=== PATIENT | female | born 1950 | race Caucasian/White ===

== ENCOUNTER → 2018-09-15 | Outpatient (CLI) | payer MEDICARE, BC ==
[~2018-09-15] MED LIST: ALBU90OI INH; AMOCLA875 PO; Aspir 8181 MG PO; BENZ100A PO; CEFD300 PO; CETI5 PO; Crestor20 MG PO; ESOM20; FISH1000 PO; FLAX PO; HYDACE5 PO; HYDR1TAB94 PO; LORA1 PO; MULVITB PO; OMEP20ER PO; ONDA4ODT MM; PROM25 PO; Percocet 5-3251 EACH PO; Prednisone20 MG PO; ROSU10TA PO; TRAM50 PO; Zofran8 MG PO
== END | disposition home or self-care (01) ==
LOC: LAB SHORT 14:26 → PLD 14:26
DX: D17.22 Benign lipomatous neoplasm of skin and subcutaneous tissue of left arm (principal); D17.24 Benign lipomatous neoplasm of skin and subcutaneous tissue of left leg
CPT/HCPCS: 88304

== ENCOUNTER 2018-12-01 08:56 | Day surgery (SDC) | payer MEDICARE, BC ==
[~2018-12-01] VITALS: Ht 167.6 cm; Wt 103.8 kg
[2018-12-01] MEDS ORDERED: EZETIMIBE-SIMV1 EAC3 (09:41)
== END 2018-12-01 11:13 | disposition home or self-care (01) ==
LOC: ORSCSDS 08:56
PROVIDERS: Internal Medicine Gastroenterology
PROC: 0DJD8ZZ Inspection of Lower Intestinal Tract, Via Natural or Artificial Opening Endoscopic (ICD-10-PCS; principal; 2018-12-01 10:15)
DX: Z12.11 Encounter for screening for malignant neoplasm of colon (principal); Z86.010 Personal history of colon polyps; K21.9 Gastro-esophageal reflux disease without esophagitis; E78.5 Hyperlipidemia, unspecified; R11.2 Nausea with vomiting, unspecified; J45.909 Unspecified asthma, uncomplicated; Z87.891 Personal history of nicotine dependence; Z79.899 Other long term (current) drug therapy
CPT/HCPCS: J2704; J7120

== ENCOUNTER 2019-02-16 06:47 | Day surgery (SDC) | payer MEDICARE, BC ==
[~2019-02-16] VITALS: Ht 167.6 cm; Wt 104.5 kg
[~2019-02-16 06:47] MED LIST changes: +CHOL10002; +EZETIMIBE-SIMV1 EAC3
[2019-02-16] MEDS ORDERED: ASPI81CH PO (07:29)
--- NOTE | 2019-02-16 07:31 | NUR ---
02/16/19 0731 Kimberly Chauhan CALL LIGHT WITHIN REACH
--- NOTE | 2019-02-16 08:34 | NUR ---
02/16/19 0834 Valencia Rausch SIMETHICONE USED DURING PROCEDURE.
== END 2019-02-16 09:35 | disposition home or self-care (01) ==
LOC: ORSCSDS 06:47
PROVIDERS: Internal Medicine Gastroenterology
PROC: 0DBL8ZX Excision of Transverse Colon, Via Natural or Artificial Opening Endoscopic, Diagnostic (ICD-10-PCS; principal; 2019-02-16 08:00)
DX: Z12.11 Encounter for screening for malignant neoplasm of colon (principal); D12.3 Benign neoplasm of transverse colon; K64.4 Residual hemorrhoidal skin tags; K64.8 Other hemorrhoids; K57.30 Diverticulosis of large intestine without perforation or abscess without bleeding; Z86.010 Personal history of colon polyps; E78.5 Hyperlipidemia, unspecified; Z87.891 Personal history of nicotine dependence
CPT/HCPCS: 88305; J0330; J0461; J2405; J2704; J7120

== ENCOUNTER 2019-03-25 17:20 | Emergency (ER) | payer MEDICARE, BC ==
[~2019-03-25] VITALS: Ht 170.2 cm; Wt 99.8 kg
[~2019-03-25 17:20] MED LIST changes: +ASPI81CH PO
[2019-03-25 18:27] LABS: BASOPHILS ABSOLUTE AUTO 0.05 K/mm3 (0.00-0.23); BASOPHILS PERCENT AUTO 0 % (0-2); EOSINOPHILS ABSOLUTE AUTO 0.18 K/mm3 (0.00-0.68); EOSINOPHILS PERCENT AUTO 1 % (0-6); Hematocrit 44.3 % (33.0-51.0); Hemoglobin 14.6 g/dL (11.5-16.0); IMMATURE GRAN ABSOLUTE AUTO 0.09 K/mm3 (0.00-0.10); IMMATURE GRAN PERCENT AUTO 0 % (0-1); LYMPHOCYTES ABSOLUTE AUTO 1.85 K/mm3 (0.84-5.20); LYMPHOCYTES PERCENT AUTO 8 % (21-46); MONOCYTES ABSOLUTE AUTO 2.13 K/mm3 (0.16-1.47); MONOCYTES PERCENT AUTO 9 % (4-13); Mean Corpuscular HGB 31.1 pg (26.0-34.0); Mean Corpuscular Volume 94 fL (80-100); Mean Platelet Volume 9.8 fL (9.1-12.4); NEUTROPHILS ABSOLUTE AUTO 19.34 K/mm3 (1.96-9.15); NEUTROPHILS PERCENT AUTO 82 % (41-73); Platelet Count 274 K/mm3 (150-400); RDW Coefficient Variation 12.9 % (11.7-14.2); RDW Standard Deviation 44.3 fL (35.1-46.3); White Blood Cell Count 23.64 K/mm3 (4.00-11.30)
[2019-03-25 18:48] LABS: Alanine Aminotransfer (ALT/SGP 34 U/L (12-78); Albumin, Blood 3.9 g/dL (3.4-5.0); Albumin/Globulin Ratio 0.9 (0.8-1.8); Alk Phos 86 U/L (50-136); Anion Gap 8 mmol/L (6-16); Aspartate Aminotrans (AST/SGOT 23 U/L (12-37); Bilirubin, Total 0.5 mg/dL (0.1-1.0); Blood Urea Nitrogen 21 mg/dL (8-24); Bun/Creatinine Ratio 23.4 (12.0-20.0); CO2, Blood 25 mmol/L (21-32); Calcium, Blood 8.9 mg/dL (8.5-10.1); Chloride, Blood 107 mmol/L (98-108); Globulin, Blood 4.2 g/dL (2.2-4.0); Glomerular Filtration Rate >60 (60-); Glucose, Blood 96 mg/dL (70-99); Sodium, Blood 140 mmol/L (136-145); Total Protein, Blood 8.1 g/dL (6.4-8.2)
[2019-03-25 21:23] LABS: Source, Urine Clean Catch
[2019-03-25 21:32] LABS: Appearance, Urine Clear (Clear); Bilirubin, Urine Neg (Neg); Blood, Urine 1+ (Neg); Color, Urine Yellow (P-Yellow); Glucose Qualitative, Urine Neg (Neg); Ketones, Urine 1+ (Neg); Leukocyte Esterase, Urine Neg (Neg); Nitrite, Urine Neg (Neg); Protein, Urine Neg (Neg); Specific Gravity, Urine 1.015 (1.003-1.022); Urobilinogen, Urine NORM (Normal)
[2019-03-25 21:45] LABS: Red Blood Cells, Urine 0-2 /hpf (0-2); Squamous Epithelial Cells Rare /hpf (Few); White Blood Cells, Urine 0-2 /hpf (0-5)
[2019-03-25 21:46] LABS: Bacteria Mod /hpf; Mucus Light (0-Heavy)
[2019-03-25] MEDS ORDERED: FAMO20 PO (23:31)
[2019-03-25] MEDS ORDERED: ONDA4ODT MM (23:31)
== END 2019-03-25 23:48 | disposition home or self-care (01) ==
LOC: ER 17:20
PROVIDERS: Physician Assistant
DX: R11.2 Nausea with vomiting, unspecified (principal); R19.7 Diarrhea, unspecified; R10.9 Unspecified abdominal pain; Z88.5 Allergy status to narcotic agent; Z88.1 Allergy status to other antibiotic agents; Z79.899 Other long term (current) drug therapy; Z79.82 Long term (current) use of aspirin; E78.5 Hyperlipidemia, unspecified; E78.00 Pure hypercholesterolemia, unspecified
CPT/HCPCS: 36415; 74177; 80053; 81001; 83690; 85025; 87086; 96361; 96374-59; 96375; 99284-25; J2405; J7030; Q9967

== ENCOUNTER → 2019-03-30 | Outpatient (CLI) | payer MEDICARE, BC ==
[~2019-03-30] MED LIST changes: +FAMO20 PO
[2019-03-30 19:15] LABS: Adenovirus F 40/41 Not Detected (NOT DETECT); Astrovirus Not Detected (NOT DETECT); Campylobacter Sp Not Detected (NOT DETECT); Cryptosporidium Not Detected (NOT DETECT); Cyclospora Cayetanensis Not Detected (NOT DETECT); E. Coli O157 Not Detected (NOT DETECT); Entamoeba Histolytica Not Detected (NOT DETECT); Enteroaggregative E. coli-EAEC Not Detected (NOT DETECT); Enteropathogenic E. coli-EPEC Not Detected (NOT DETECT); Enterotoxigenic E. coli-ETEC Not Detected (NOT DETECT); Giardia Lamblia Not Detected (NOT DETECT); Norovirus GI/GII Not Detected (NOT DETECT); Plesiomonas Shigelloides Not Detected (NOT DETECT); Rotavirus A Not Detected (NOT DETECT); Salmonella Sp Not Detected (NOT DETECT); Sapovirus Not Detected (NOT DETECT); Shiga Toxin-prod E. coli-STEC Not Detected (NOT DETECT); Shigella/Enteroin E. coli-EIEC Not Detected (NOT DETECT); Vibrio Cholerae Not Detected (NOT DETECT); Vibrio Sp Not Detected (NOT DETECT); Yersinia Enterocolitica Not Detected (NOT DETECT)
== END ==
LOC: LAB EV 15:37
PROVIDERS: Nurse Practitioner Family
DX: K52.9 Noninfective gastroenteritis and colitis, unspecified (principal)
CPT/HCPCS: 0097U

== ENCOUNTER → 2020-03-21 | Outpatient (CLI) | payer MEDICARE, BC | END | disposition home or self-care (01) | LOC: PLD 15:05 → LAB SHORT 15:05 | DX: D22.71 Melanocytic nevi of right lower limb, including hip (principal) | CPT/HCPCS: 88305 ==

== ENCOUNTER 2020-12-11 09:25 | Emergency (ER) | payer MEDICARE, BC ==
[~2020-12-11] VITALS: Ht 167.6 cm; Wt 104.3 kg
[2020-12-11 11:22] LABS: BASOPHILS ABSOLUTE AUTO 0.02 K/mm3 (0.00-0.23); BASOPHILS PERCENT AUTO 0 % (0-2); EOSINOPHILS ABSOLUTE AUTO 0.05 K/mm3 (0.00-0.68); EOSINOPHILS PERCENT AUTO 1 % (0-6); Hematocrit 42.7 % (33.0-51.0); Hemoglobin 14.2 g/dL (11.5-16.0); IMMATURE GRAN ABSOLUTE AUTO 0.04 K/mm3 (0.00-0.10); IMMATURE GRAN PERCENT AUTO 1 % (0-1); LYMPHOCYTES ABSOLUTE AUTO 0.58 K/mm3 (0.84-5.20); LYMPHOCYTES PERCENT AUTO 8 % (21-46); MONOCYTES ABSOLUTE AUTO 0.57 K/mm3 (0.16-1.47); MONOCYTES PERCENT AUTO 8 % (4-13); Mean Corpuscular HGB 31.8 pg (26.0-34.0); Mean Corpuscular HGB Conc 33.3 g/dL (31.5-36.5); Mean Corpuscular Volume 96 fL (80-100); Mean Platelet Volume 9.5 fL (9.1-12.4); NEUTROPHILS ABSOLUTE AUTO 6.23 K/mm3 (1.96-9.15); NEUTROPHILS PERCENT AUTO 83 % (41-73); Platelet Count 179 K/mm3 (150-400); RDW Coefficient Variation 13.3 % (11.7-14.2); RDW Standard Deviation 47.6 fL (35.1-46.3); Red Blood Cell Count 4.47 M/mm3 (3.80-5.20); White Blood Cell Count 7.49 K/mm3 (4.00-11.30)
[2020-12-11 11:28] LABS: Source, Urine Clean Catch
[2020-12-11 11:40] LABS: Alanine Aminotransfer (ALT/SGP 29 U/L (12-78); Albumin, Blood 3.3 g/dL (3.4-5.0); Albumin/Globulin Ratio 0.9 (0.8-1.8); Alk Phos 75 U/L (50-136); Anion Gap 5 mmol/L (6-16); Aspartate Aminotrans (AST/SGOT 23 U/L (12-37); Bilirubin, Total 0.7 mg/dL (0.1-1.0); Blood Urea Nitrogen 17 mg/dL (8-24); Bun/Creatinine Ratio 22.4 (12.0-20.0); CO2, Blood 28 mmol/L (21-32); Calcium, Blood 8.4 mg/dL (8.5-10.1); Chloride, Blood 106 mmol/L (98-108); Creatinine, Blood 0.76 mg/dL (0.40-1.00); Globulin, Blood 3.8 g/dL (2.2-4.0); Glomerular Filtration Rate >60 (60-); Glucose, Blood 113 mg/dL (70-99); Potassium, Blood 3.8 mmol/L (3.5-5.5); Sodium, Blood 139 mmol/L (136-145); Total Protein, Blood 7.1 g/dL (6.4-8.2)
[2020-12-11 11:41] LABS: Appearance, Urine Turbid (Clear); Blood, Urine 3+ (Neg); Color, Urine Yellow (P-Yellow); Glucose Qualitative, Urine Neg (Neg); Ketones, Urine 1+ (Neg); Leukocyte Esterase, Urine 3+ (Neg); Nitrite, Urine Neg (Neg); Protein, Urine 2+ (Neg); Specific Gravity, Urine 1.025 (1.003-1.022); Urobilinogen, Urine 1+ (Normal)
[2020-12-11 11:59] LABS: Bilirubin, Urine 1+ (Neg)
[2020-12-11 12:01] LABS: Amorphous Heavy (0-Heavy); Bacteria Many /hpf; Squamous Epithelial Cells Few /hpf (Few)
[2020-12-11] MEDS ORDERED: PROM25 PO (13:27)
[2020-12-11] MEDS ORDERED: Metronidazole70 GM VAG (13:27)
[2020-12-11] MEDS ORDERED: CEPH500 PO (13:27)
== END 2020-12-11 14:00 | disposition home or self-care (01) ==
LOC: ER 09:25
PROVIDERS: Physician Assistant
DX: N39.0 Urinary tract infection, site not specified (principal); E78.00 Pure hypercholesterolemia, unspecified; E78.5 Hyperlipidemia, unspecified; Z88.5 Allergy status to narcotic agent; Z88.1 Allergy status to other antibiotic agents; Z79.82 Long term (current) use of aspirin; Z79.899 Other long term (current) drug therapy
CPT/HCPCS: 36415; 80053; 81001; 83690; 85025; 87086; 96374; 96375; 99284-25; J0696; J2405; J2550; J7030

== ENCOUNTER → 2020-12-15 | Outpatient (CLI) | payer MEDICARE, BC ==
[~2020-12-15] MED LIST changes: +CEPH500 PO; +Metronidazole70 GM VAG
[2020-12-15 16:32] LABS: Anion Gap 10 mmol/L (6-16); Blood Urea Nitrogen 12 mg/dL (8-24); Bun/Creatinine Ratio 16.7 (12.0-20.0); CO2, Blood 28 mmol/L (21-32); CPK Creatine Kinase 60 U/L (26-192); Calcium, Blood 8.8 mg/dL (8.5-10.1); Chloride, Blood 101 mmol/L (98-108); Creatinine, Blood 0.72 mg/dL (0.40-1.00); Glomerular Filtration Rate >60 (60-); Glucose, Blood 99 mg/dL (70-99); Potassium, Blood 3.5 mmol/L (3.5-5.5); Sodium, Blood 139 mmol/L (136-145)
[2020-12-15 16:34] LABS: Bacteria Few /hpf; Mucus Not Seen (0-Heavy); Red Blood Cells, Urine Rare /hpf (0-2); Source, Urine Voided; Squamous Epithelial Cells Rare /hpf (Few); White Blood Cells, Urine Rare /hpf (0-5)
[2020-12-15 16:35] LABS: Calcium Oxalate Crystals Few /hpf
== END | disposition home or self-care (01) ==
LOC: LAB EV 16:18 → LAB SHORT 16:18
PROVIDERS: Physician Assistant
DX: M79.10 Myalgia, unspecified site (principal); M79.671 Pain in right foot; M79.672 Pain in left foot; R20.2 Paresthesia of skin; R60.9 Edema, unspecified; R82.90 Unspecified abnormal findings in urine
CPT/HCPCS: 80048; 81015; 82550; 82607; 82746; 83880

== ENCOUNTER → 2021-04-01 | Outpatient (CLI) | payer MEDICARE, BC ==
[2021-04-01 15:35] LABS: Source, Urine Voided
[2021-04-01 15:38] LABS: Appearance, Urine Clear (Clear); Bilirubin, Urine Neg (Neg); Blood, Urine Neg (Neg); Color, Urine Yellow (P-Yellow); Glucose Qualitative, Urine Neg (Normal); Ketones, Urine Neg (Neg); Leukocyte Esterase, Urine Neg (Neg); Nitrite, Urine Neg (Neg); Protein, Urine Neg (Neg); Specific Gravity, Urine 1.005 (1.003-1.022); Urobilinogen, Urine NORM (Normal)
[2021-04-02 11:02] LABS: Candida species (DNA Probe) Negative (NEGATIVE); G. vaginalis (DNA Probe) Positive (NEGATIVE); T. vaginalis (DNA Probe) Negative (NEGATIVE)
== END | disposition home or self-care (01) ==
LOC: LAB 12:31 → LAB SHORT 12:31
PROVIDERS: Nurse Practitioner Family
DX: N76.0 Acute vaginitis (principal); R87.89 Other abnormal findings in specimens from female genital organs
CPT/HCPCS: 81003; 87480; 87510; 87660

== ENCOUNTER → 2021-06-22 | Outpatient (CLI) | payer MEDICARE, BC | END | disposition home or self-care (01) | LOC: LAB 12:15 → LAB SHORT 12:15 | DX: R30.0 Dysuria (principal) | CPT/HCPCS: 87077; 87086; 87186 ==

== ENCOUNTER → 2021-07-03 | Outpatient (CLI) | payer MEDICARE, BC | LOC: LAB SHORT 06:50 | DX: R30.0 Dysuria (principal) | CPT/HCPCS: 87077; 87086; 87186 ==

== ENCOUNTER → 2021-09-14 | Outpatient (CLI) | payer MEDICARE, BC | END | disposition home or self-care (01) | LOC: LAB 11:15 → LAB SHORT 11:15 | DX: R30.0 Dysuria (principal) | CPT/HCPCS: 87077; 87086; 87186 ==

== ENCOUNTER 2021-10-17 11:08 | Day surgery (SDC) | payer MEDICARE, BC ==
[~2021-10-17] VITALS: Ht 167.6 cm; Wt 101.1 kg
--- NOTE | 2021-10-17 13:45 | NUR ---
10/17/21 1345 DASH SHEPARD PT STATES FEELS PRESSURE IN KNEE. LÁZARO READJUSTED, STATES THATS HOW SHE DOES IT AT HOME TO SLEEP. PT FALLS BACK TO SLEEP EASILY. DENIES NAUSEA. SCOPE PATCH ON BEHIND RIGHT EAR.
== END 2021-10-17 14:45 | disposition home or self-care (01) ==
LOC: ORSCSDS 11:08
PROVIDERS: Orthopaedic Surgery
PROC: 0SBC4ZZ Excision of Right Knee Joint, Percutaneous Endoscopic Approach (ICD-10-PCS; principal; 2021-10-17 12:30)
DX: S83.231A Complex tear of medial meniscus, current injury, right knee, initial encounter (principal); M17.11 Unilateral primary osteoarthritis, right knee; J45.909 Unspecified asthma, uncomplicated; E66.9 Obesity, unspecified; Z68.36 Body mass index [BMI] 36.0-36.9, adult; E78.00 Pure hypercholesterolemia, unspecified; Z79.899 Other long term (current) drug therapy
CPT/HCPCS: A9270; J0690; J1100; J1885; J2250; J2405; J2704; J3010

== ENCOUNTER 2024-09-21 02:44 | Day surgery (SDC) | payer MEDICARE, BC ==
[~2024-09-21 02:44] MED LIST changes: +ASPIR 8181 M1 PO; +Acetaminophen650 M1; +CRANBERRY450 M1 PO; +ELIQUIS5 M2 PO; -ESOM20; +ESOM20 PO; +FENO160 PO; +LIVALO4 MG; +METO25ER PO; +VITAMIN D325 MC3 PO
[2024-09-21] MEDS ORDERED: INCLISIRAN SODIUM 284 MG/1.5 ML SYRINGE SC SCH (06:00)
[2024-09-21 11:13] VITALS: BP 146/60
[2024-09-21] MEDS ORDERED: FURO40 PO (11:27)
[2024-09-21] MEDS ORDERED: POTCHL20ER PO (11:27)
[2024-09-21] MEDS ORDERED: GABA300 PO (11:30)
== END 2024-09-21 11:45 | disposition home or self-care (01) ==
LOC: ATC 02:44
DX: E78.5 Hyperlipidemia, unspecified (principal); E55.9 Vitamin D deficiency, unspecified; K21.9 Gastro-esophageal reflux disease without esophagitis; I48.0 Paroxysmal atrial fibrillation; Z79.01 Long term (current) use of anticoagulants; Z79.899 Other long term (current) drug therapy; Z88.5 Allergy status to narcotic agent; Z88.1 Allergy status to other antibiotic agents; Z88.8 Allergy status to other drugs, medicaments and biological substances; Z90.49 Acquired absence of other specified parts of digestive tract
CPT/HCPCS: 96372; J1306

== ENCOUNTER 2024-09-29 08:09 | Day surgery (SDC) | payer MEDICARE, BC ==
[~2024-09-29] VITALS: Ht 167.6 cm; Wt 98.5 kg
[~2024-09-29 08:09] MED LIST changes: +FURO40 PO; +GABA300 PO; +Lactated Ringer's 1,000 ML IV ONE; +POTCHL20ER PO
[2024-09-29] MEDS ORDERED: Lactated Ringer's 1,000 ML IV ONE (09:13)
[2024-09-29] MEDS ORDERED: EPINEPhrine HCl 1 MG/ML 1ML Amp ONE (09:16)
[2024-09-29] MEDS ORDERED: CeFAZolin Sodium 2,000 MG VIAL ONE (09:23)
[2024-09-29] MEDS ORDERED: propofoL 20 ML IV ONE ×2 (09:25→09:43)
[2024-09-29] MEDS ORDERED: FentaNYL Citrate 50 MCG/ML 2 ML Injection ONE ×2 (09:25→10:41)
[2024-09-29] MEDS ORDERED: Rocuronium Bromide 10 MG/ML 5ML Injection IV ONE (09:26)
[2024-09-29] MEDS ORDERED: Ondansetron HCl 2 MG / ML 2ML Vial ONE ×2 (10:23→10:41)
[2024-09-29] MEDS ORDERED: Sugammadex Sodium 200 MG/2ML SDV (100 MG/ML) ONE (10:24)
[2024-09-29] MEDS ORDERED: Ketorolac Tromethamine 30mg Vial ONE (10:26)
--- NOTE | 2024-09-29 10:49 | NUR ---
09/29/24 1049 CATALINA TRIPLETT 4 MG IVP ZOFRAN GIVEN FOR PT REPORTED NAUSEA, NO EMESIS NOR HEAVES
--- NOTE | 2024-09-29 11:29 | NUR ---
09/29/24 1129 CATALINA TRIPLETT UP IN CHAIR, STATES THROAT FEELS "BETTER", EATING POPSICLE.
[2024-09-29 11:30] VITALS: BP 121/59
[2024-09-29] MEDS ORDERED: HYDROcodone 5-APAP 325 TAB ONE (12:06)
== END 2024-09-29 12:32 | disposition home or self-care (01) ==
LOC: ORSCSDS 08:09
PROVIDERS: Orthopaedic Surgery
PROC: 0SBC4ZZ Excision of Right Knee Joint, Percutaneous Endoscopic Approach (ICD-10-PCS; principal; 2024-09-29 09:30)
DX: M23.200 Derangement of unspecified lateral meniscus due to old tear or injury, right knee (principal); M23.203 Derangement of unspecified medial meniscus due to old tear or injury, right knee; M17.11 Unilateral primary osteoarthritis, right knee; I48.91 Unspecified atrial fibrillation; Z79.01 Long term (current) use of anticoagulants; E66.9 Obesity, unspecified; Z68.35 Body mass index [BMI] 35.0-35.9, adult; Z79.899 Other long term (current) drug therapy
CPT/HCPCS: A9270; J0171; J0690; J1885; J2405; J2704; J3010; J7120

== ENCOUNTER 2025-01-01 03:53 | Day surgery (SDC) | payer MEDICARE, BC ==
[~2025-01-01 03:53] MED LIST changes: +INCLISIRAN SODIUM 284 MG/1.5 ML SYRINGE SC SCH; -Lactated Ringer's 1,000 ML IV ONE
[2025-01-01 14:36] VITALS: BP 153/73
== END 2025-01-01 14:45 | disposition home or self-care (01) ==
LOC: ATC 03:53
DX: E78.5 Hyperlipidemia, unspecified (principal); E55.9 Vitamin D deficiency, unspecified; K21.9 Gastro-esophageal reflux disease without esophagitis; E88.810 Metabolic syndrome; J45.909 Unspecified asthma, uncomplicated; I48.0 Paroxysmal atrial fibrillation; Z79.01 Long term (current) use of anticoagulants; Z79.899 Other long term (current) drug therapy; Z88.1 Allergy status to other antibiotic agents; Z88.5 Allergy status to narcotic agent; Z88.8 Allergy status to other drugs, medicaments and biological substances
CPT/HCPCS: 96372; J1306

== ENCOUNTER 2025-07-10 02:45 | Day surgery (SDC) | payer MEDICARE, BC ==
[~2025-07-10 02:45] MED LIST changes: -INCLISIRAN SODIUM 284 MG/1.5 ML SYRINGE SC SCH
[2025-07-10] MEDS ORDERED: INCLISIRAN SODIUM 284 MG/1.5 ML SYRINGE SC SCH (06:00)
[2025-07-10 11:08] VITALS: BP 134/51
== END 2025-07-10 11:11 | disposition home or self-care (01) ==
LOC: ATC 02:45
DX: E78.5 Hyperlipidemia, unspecified (principal); I48.0 Paroxysmal atrial fibrillation; Z88.5 Allergy status to narcotic agent; Z88.8 Allergy status to other drugs, medicaments and biological substances; Z91.048 Other nonmedicinal substance allergy status
CPT/HCPCS: 96372; J1306